=== PATIENT | male | born 1955 | race Caucasian/White ===

== ENCOUNTER 2016-10-25 14:29 | Emergency (ER) | payer OTHER ==
[~2016-10-25] VITALS: Ht 177.8 cm; Wt 102.1 kg
[2016-10-25 14:42] VITALS: BP 138/91
--- NOTE | 2016-10-25 15:04 | Emergency Room Report ---
History of Present Illness General Chief Complaint: General Complaint Source: Patient Present Illness HPI 61-year-old male presents emergency department complaining of slurred speech, facial droop and inability to close the left eyelid x5 days. he reports recent ear infection proceeding his symptoms. Patient denies unilateral weakness, numbness tingling, headache, or trauma/ fall. Patient reports history of high blood pressure. She states he is currently taking steroids. Denies history of prior CVA. Pt. states he also was given a protective lens for his left eye in addition to eye drops by pcp. pt. was sent here by PCP to R/O CVA. Denies CP, Palpitations, LOC, AMS, dizziness, Changes in Vision, Sensation, paresthesias, or a sudden severe headache. Allergies: Coded Allergies: No Known Allergies (Unverified , 10/25/16) Patient History Past Medical History: see triage record Past Surgical History: none Pertinent Family History: none Immunizations: UTD Reviewed Nursing Documentation: PMH: Agreed, PSxH: Agreed Nursing Documentation-PMH Past Medical History: No History, Except For Hx Hypertension: Yes Hx Diabetes: Yes Review of Systems All Other Systems: negative except mentioned in HPI Physical Exam Vital Signs Date Time Temp Pulse Resp B/P Pulse Ox O2 Delivery O2 Flow Rate FiO2 10/25/16 14:42 98.2 90 20 138/91 96 Room Air Sp02 EP Interpretation: reviewed, normal General Appearance: no apparent distress, alert, GCS 15, non-toxic Head: normocephalic, atraumatic Eyes: bilateral eye PERRL, bilateral eye normal inspection ENT: hearing grossly normal, normal pharynx, no angioedema, normal voice Neck: full range of motion, supple/symm/no masses Respiratory: chest non-tender, lungs clear, normal breath sounds, speaking full sentences Cardiovascular #1: regular rate, rhythm, no edema Musculoskeletal: back normal, gait/station normal, normal range of motion, non- tender, no calf tenderness Neurologic: alert, oriented x3, responsive, motor strength/tone normal, sensory intact, cerebellar normal, normal gait, speech normal, no pronator, facial droop - unilateral left sided facial droop, does not spare the forehead muscles, 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 martell is my supervising Physician whom patient management has been discussed with. Diagnostic Impression: Primary Impression: Villagran palsy ER Course 61-year-old male presents emergency department complaining of slurred speech, facial droop and inability to close the left eyelid x5 days. he reports recent ear infection proceeding his symptoms. Patient denies unilateral weakness, numbness tingling, headache, or trauma/ fall. Patient reports history of high blood pressure. She states he is currently taking steroids. Denies history of prior CVA. Pt. states he also was given a protective lens for his left eye in addition to eye drops by pcp. pt. was sent here by PCP to R/O CVA. Denies CP, Palpitations, LOC, AMS, dizziness, Changes in Vision, Sensation, paresthesias, or a sudden severe headache. Ddx considered but are not limited to CVA, Villagran's Palsy, facial nerve dysfunction Vital signs: are WNL, pt. is afebrile H&PE are most consistent with bells palsy pt. unable to raise left eyebrow. negative pronator drift. ORDERS: -CT Head No Contrast: No evidence of acute fracture, hemorrhage, or intracranial process Per: radiology report ED INTERVENTIONS: None required at this time. d/w pt. results of imaging, also d/w pcp the results, pt. is stable for close outpatient follow up. DISCHARGE: At this time pt. is stable for d/c to home. Will provide printed patient care instructions, and any necessary prescriptions. Care plan and follow up instructions have been discussed with the patient prior to discharge. EKG Diagnostic Results EP Interpretation: Dr. Arauz Rate: normal - 85 BPM Rhythm: NSR ST Segments: no acute changes ASA given to the pt in ED: No PA Scribe Text low voltage , no acute ST elevation -interpreted by Dr. Arauz. Last Vital Signs Date Time Temp Pulse Resp B/P Pulse Ox O2 Delivery O2 Flow Rate FiO2 10/25/16 14:42 98.2 90 20 138/91 96 Room Air Disposition: HOME, SELF-CARE Condition: Stable Referrals: NON PHYSICIAN (PCP) Patient Instructions: Villagran Palsy Additional Instructions: Take previously prescribed medications as directed. Follow up with PCP in 3-5 days Return sooner to ED if new symptoms occur, or current symptoms become worse. - Please note that this Emergency Department Report was dictated using [employer] culturist technology software, occasionally this can lead to erroneous entry secondary to interpretation by the dictation equipment. Therese Browning October 25, 2016 15:04
--- NOTE | 2016-10-25 15:50 | Diagnostic Imaging Report ---
Indication: Facial droop Technique: Contiguous 5 mm thick transaxial imaging of the head obtained in a Siemens Sensation [address] scanner. Soft tissue and bone windows generated. Total Dose length Product (DLP): [address] Dose Index Volume (CTDIvol): 70.38 mGy Comparison: none Findings: The size and configuration of the cortical sulci, basal cisterns, and ventricles are within normal limits for age. There is no mass effect, midline shift, or edema identified. There is no evidence of acute hemorrhage or abnormal intra-axial or extra-axial fluid collections. The bones and soft tissues are unremarkable. Impression: No mass effect, edema or acute bleed. The CT scanner at [facility] is accredited by the [employer] and the scans are performed using protocols designed to limit radiation exposure to as low as reasonably achievable to attain images of sufficient resolution adequate for diagnostic evaluation.
--- NOTE | 2016-10-25 15:51 | Diagnostic Imaging Report ---
Indication: Chest Pain Comparison: None A single view chest radiograph was obtained. Findings: Cardiomediastinal appearance is within normal limits for age. Aorta is slightly ectatic. Pulmonary vascularity is appropriate. The diaphragmatic contour is smooth and costophrenic angles are sharp. No pleural effusions are identified. The bones are unremarkable. Impression: No acute findings
[2016-10-25 16:17] VITALS: BP 138/91
--- NOTE | 2016-10-27 08:38 | Cardiology Report ---
APPROVED REPORT EKG Measurement Heart [id number] Sinus rhythm with premature atrial complexes Voltage criteria for left ventricular hypertrophy Nonspecific T wave abnormality Abnormal ECG
== END 2016-10-25 16:17 | disposition home or self-care (01) ==
LOC: EMR 14:54
DX: G51.0 Bell's palsy (principal); E11.9 Type 2 diabetes mellitus without complications; I10 Essential (primary) hypertension; R47.81 Slurred speech
CPT/HCPCS: 70450; 71010; 93005; 99284

== ENCOUNTER 2020-05-13 14:15 | Emergency (ER) | payer OTHER ==
[~2020-05-13] VITALS: Ht 177.8 cm; Wt 102.1 kg
[2020-05-13 14:45] VITALS: BP 122/71
--- NOTE | 2020-05-13 14:45 | NUR ---
ED Nurse Note: Pt walked in c/o left flank abscess that has worsened over last few weeks. 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 Respirations even and unlabored on room air. Vitals stable as documented. A+Ox4, speaking in complete sentences.
[2020-05-13] MEDS ORDERED: Cephalexin 500mg cap ORAL ONE (16:00)
[2020-05-13] MEDS ORDERED: Acetaminophen 500mg (ES) tab ORAL ONE (16:00)
[2020-05-13] MEDS ORDERED: Bactrim-DS 1 tab ORAL ONE (16:00)
[2020-05-13] MEDS ORDERED: TYLENOL EXTRA500 MG ORAL (16:12)
[2020-05-13] MEDS ORDERED: BACTRIM DS TAB1 EAC1 ORAL (16:12)
[2020-05-13] MEDS ORDERED: CEPHALEXIN500 MG ORAL (16:12)
[2020-05-13] MEDS ORDERED: Bacitracin Oint UD TOPIC ONE ×2 (16:19→16:30)
[2020-05-13 16:30] VITALS: BP 109/72
--- NOTE | 2020-05-16 07:45 | Emergency Room Report ---
History of Present Illness General Chief Complaint: Skin Rash/Abscess Source: Patient Present Illness HPI 64-year-old male presents with an abscess to the left side ribs. Has been a cyst for many years and is waiting for referral from her PMD to have it removed but states the last few weeks it got infected. Red and painful with some pus. 10 out of 10, dull, nonradiating. Denies fevers or chills. No other aggravating relieving factors. 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 COVID-19 Screening: Negative COVID-19 COVID-19 Testing Source: unk amonth ago Patient History Past Medical History: DM, HTN Past Surgical History: none Pertinent Family History: none Social History: Denies: smoking, alcohol use, drug use Immunizations: UTD Reviewed Nursing Documentation: PMH: Agreed; PSxH: Agreed Nursing Documentation-PMH Past Medical History: No History, Except For Hx Hypertension: Yes Hx Diabetes: Yes Review of Systems All Other Systems: negative except mentioned in HPI Physical Exam Vital Signs Date Time Temp Pulse Resp B/P (MAP) Pulse Ox O2 Delivery O2 Flow Rate FiO2 05/13/20 14:36 98.8 88 20 112/78 (89) 96 Room Air Sp02 EP Interpretation: reviewed, normal General Appearance: no apparent distress, alert, GCS 15, non-toxic Head: normocephalic, atraumatic Eyes: bilateral eye normal inspection, bilateral eye PERRL ENT: hearing grossly normal, normal pharynx, no angioedema, normal voice Neck: full range of motion, supple/symm/no masses Respiratory: chest non-tender, lungs clear, normal breath sounds, speaking full sentences Cardiovascular #1: regular rate, rhythm, no edema Cardiovascular #2: 2+ carotid (R), 2+ carotid (L), 2+ radial (R), 2+ radial (L), 2+ dorsalis pedis (R), 2+ dorsalis pedis (L) Gastrointestinal: normal bowel sounds, non tender, soft, non-distended, no guarding, no rebound Rectal: deferred Genitourinary: normal inspection, no CVA tenderness Musculoskeletal: back normal, normal range of motion, gait/station normal, non- tender Neurologic: alert, motor strength/tone normal, oriented x3, sensory intact, responsive, speech normal Psychiatric: judgement/insight normal, memory normal, mood/affect normal, no suicidal/homicidal ideation Reflexes: 3+ bicep (R), 3+ bicep (L), 3+ tricep (R), 3+ tricep (L), 3+ knee (R), 3+ knee (L) Skin: other - 3 x 2 cm abscess to left lateral ribs. No surrounding erythema. Fluctuance noted Lymphatic: no adenopathy Procedures Incision and Drainage Incision and Drainage : Consent: Verbal Blade Size: 11 I & D Procedure: betadine prep, sterile drapes applied, sterile dressing applied, gauze wick placed Wound Location: other - Left lateral ribs Wound's Depth, Shape: other - Abscess Wound Explored: Purulent discharge expressed Anesthesia: 1% Lidocaine Splint Applied?: No Sling Applied?: No Patient Tolerated: Well Complications: None Medical Decision Making Diagnostic Impression: Primary Impression: Abscess ER Course Hospital Course 64-year-old male presents with an abscess to the left side ribs 4 months Clinical course Patient placed on stretcher. After initial history and physical I anesthetized the area with lidocaine. Using a scalpel I lanced the abscess and purulent discharge was expressed. Used forceps I was able to break up any loculations. Patient tolerated procedure without complication. Dressings applied. discussed findings with patient. Safe for discharge will discharge with a ntibiotics. I will provide referrals Diagnosis - abscess Stable and discharged to home with prescription for bactrim, keflex. wound Care instructions given. Followup with PMD. Return to ED if any signs of infection develop Last Vital Signs Date Time Temp Pulse Resp B/P (MAP) Pulse Ox O2 Delivery O2 Flow Rate FiO2 05/13/20 16:30 97.3 83 20 109/72 98 Room Air Status: improved Disposition: HOME, SELF-CARE Condition: Stable Scripts Acetaminophen* (TYLENOL EXTRA STRENGTH*) 500 Mg Tablet 500 MG ORAL Q8H PRN for Prn Headache/Temp > 101, #30 TAB 0 Refills Prov: Roosevelt Arauz MD 05/13/20 Trimethoprim/Sulfamethoxazole 160/800* (BACTRIM DS TABLET*) 1 Each Tablet 1 TAB ORAL TWICE A DAY for 14 Days, TAB Prov: Roosevelt Arauz MD 05/13/20 Cephalexin* (KEFLEX*) 500 Mg Capsule 500 MG ORAL EVERY 6 HOURS, #28 CAP Prov: Roosevelt Arauz MD 05/13/20 Referrals: NON PHYSICIAN (PCP) [facility] Patient Instructions: Roosevelt Schultz MD May 16, 2020 07:45
== END 2020-05-13 16:30 | disposition home or self-care (01) ==
LOC: EMR 15:00
DX: L02.219 Cutaneous abscess of trunk, unspecified (principal); E11.9 Type 2 diabetes mellitus without complications; I10 Essential (primary) hypertension; Z91.018 Allergy to other foods; Z91.09 Other allergy status, other than to drugs and biological substances
CPT/HCPCS: 10060; Z7502; 99282